=== PATIENT | female | born 1950 ===

== ENCOUNTER 2018-05-18 21:54 | Emergency (ER) | payer OTHER ==
[2018-05-18 22:05] VITALS: TEMP 98.1
[2018-05-18 22:14] VITALS: RESP 20
--- NOTE | 2018-05-18 22:15 | C.PDOC ---
History Of Present Illness Patient states she was at work eating then felt like her throat was closing and she couldn't breath. She is currently speaking in complete sentences. Denies nausea, vomiting, diarrhea, dizziness, or chest pain. Time Seen by Provider: 05/18/18 22:15 Chief Complaint (Nursing): Shortness Of Breath History Per: Patient History/Exam Limitations: no limitations Onset/Duration Of Symptoms: Hrs Current Symptoms Are (Timing): Gone Initiating Event: Other (Eating) Current Respiratory Medications: See Home Med List Severity: Moderate Pain Scale Rating Of: 4 Associated Symptoms: denies: Other (Nausea, Vomiting, Diarrhea, Dizziness, Chest pain) Recent travel outside of the [place]: No Past Medical History Reviewed: Historical Data, Nursing Documentation, Vital Signs Vital Signs: Last Vital Signs Temp 98.1 F 05/18/18 22:01 Pulse 91 H 05/18/18 22:01 Resp 20 05/18/18 22:13 BP 187/104 H 05/18/18 22:01 Pulse Ox 97 05/18/18 22:01 - Medical History PMH: HTN, Hyperlipidemia Surgical History: Appendectomy, Cholecystectomy Family History: States: No Known Family Hx - Social History Hx Alcohol Use: No Hx Substance Use: No - Immunization History Hx Tetanus Toxoid Vaccination: No Hx Influenza Vaccination: No Review Of Systems Constitutional: Negative for: Fever, Chills Cardiovascular: Negative for: Chest Pain, Palpitations Gastrointestinal: Negative for: Nausea, Vomiting, Diarrhea Neurological: Negative for: Weakness, Numbness, Dizziness Physical Exam - Physical Exam Appears: Non-toxic Skin: Warm, Dry Head: Normacephalic Eye(s): bilateral: Normal Inspection Oral Mucosa: Moist Throat: No Erythema, No Exudate, No Other (Swelling) Neck: Trachea Midline, Supple Chest: Symmetrical, No Tenderness Cardiovascular: Rhythm Regular Respiratory: No Rales, No Rhonchi, No Wheezing Gastrointestinal/Abdominal: Soft, No Tenderness Back: Normal Inspection Neurological/Psych: Oriented x3 Gait: Steady ED Course And Treatment - Laboratory Results Result Diagrams: 05/19/18 00:32 05/19/18 00:32 ECG: Interpreted By Me, Viewed By Me ECG Rhythm: Sinus Rhythm (84), Nonspecific Changes (lvh) O2 Sat by Pulse Oximetry: 97 (room air) Pulse Ox Interpretation: Normal - Radiology CXR: Interpreted by Me, Viewed By Me CXR Interpretation: No: Infiltrates, Fracture, Pnemothorax Progress Note: Blood work, CXR, and urinalysis ordered. IV fluids, pepcid, solumedrol, and insulin administered. 3:08 am pt feels much better. tolerating po. wants to go home. Lungs are CTA Reevaluation Time: 03:09 Reassessment Condition: Improved Disposition Counseled Patient/Family Regarding: Studies Performed, Diagnosis - Disposition Referrals: Non [facility] Provider, [Primary Care Provider] - Disposition: HOME/ ROUTINE Disposition Time: 22:15 Condition: FAIR Additional Instructions: Por favor regrese si los sntomas recurren. Prescriptions: Epinephrine [Epipen] 0.3 mg IJ ONCE PRN #2 auto.injct PRN Reason: Anaphylaxis Prednisone [Deltasone] 20 mg PO DAILY #5 tablet Instructions: Food Allergy Forms: [facility] (Turkmen), Work Excuse Print Language: SERBIAN - Clinical Impression Clinical Impression: Allergic reaction - Scribe Statement The provider has reviewed the documentation as recorded by the Scribericka Liang All medical record entries made by the Scribe were at my direction and personally dictated by me. I have reviewed the chart and agree that the record accurately reflects my personal performance of the history, physical exam, medical decision making, and the department course for this patient. I have also personally directed, reviewed, and agree with the discharge instructions and disposition.
[2018-05-19] MEDS ORDERED: Sodium Chloride 0.9% 1,000 ML IV SCH (00:15)
[2018-05-19] MEDS ORDERED: (Novolin R) Insulin Human Regular 100 units/ml vial IVP ONE (00:23)
[2018-05-19 00:35] LABS: BASO % 0.8 % (0.0-2.0); EOS % 0.7 % (0.0-4.0); HEMOGLOBIN 10.5 g/dL (11.0-16.0); LYMPH # 2.4 K/uL (1.0-4.3); MEAN CELL VOLUME 85.2 fL (81.0-99.0); MEAN CORPUSCULAR HEMOGLOBIN 27.5 pg (27.0-31.0); MEAN CORPUSCULAR HGB CONC 32.2 g/dL (33.0-37.0); MEAN PLATELET VOLUME 10.7 fL (7.2-11.7); MONO # 0.5 K/uL (0.0-0.8); MONO % 8.3 % (0.0-10.0); NEUT # 2.6 K/uL (1.8-7.0); NEUT % 47.2 % (50.0-75.0); RBC 3.84 Mil/uL (3.80-5.20); RED CELL DISTRIBUTION WIDTH 13.5 % (11.5-14.5); WHITE BLOOD COUNT 5.5 K/uL (4.8-10.8)
[2018-05-19] MEDS ORDERED: Sodium Chloride 0.9% 1,000 ML ONE (00:35)
[2018-05-19 00:44] LABS: INR 1.1
[2018-05-19 00:47] LABS: ALB/GLOB RATIO 1.1 (1.0-2.1); ALBUMIN 3.4 g/dL (3.5-5.0); ALT/SGPT 23 U/L (9-52); AST/SGOT 24 U/L (14-36); BLOOD UREA NITROGEN 25 mg/dL (7-17); CALCIUM 8.2 mg/dl (8.6-10.4); GFR NON-AFRICAN AMERICAN 55; LIPASE 105 U/L (23-300)
[2018-05-19 00:52] LABS: VENOUS BLOOD GAS BASE EXCESS 6.9 mmol/L (0.0-2.0); VENOUS BLOOD GAS PCO2 49 mmHg (40-60); VENOUS BLOOD GAS PO2 24 mm/Hg (30-55); VENOUS BLOOD PH 7.43 (7.32-7.43)
[2018-05-19 03:18] VITALS: BP 158/70; PULSE 81; O2SAT 98
--- NOTE | 2018-05-19 07:56 | RAD ---
Date of service: 05/19/2018 HISTORY: sob COMPARISON: No prior. TECHNIQUE: Chest PA and lateral FINDINGS: LUNGS: No infiltrate identified bilaterally. A small density seen the right costophrenic sulcus laterally, potentially reflecting nodule which follow-up chest is advised. PLEURA: No significant pleural effusion identified. No pneumothorax apparent. CARDIOVASCULAR: No aortic atherosclerotic calcification present. Borderline cardiomegaly.. No pulmonary vascular congestion. OSSEOUS STRUCTURES: No significant abnormalities. VISUALIZED UPPER ABDOMEN: Normal. OTHER FINDINGS: None. IMPRESSION: Small nodule question at right lateral base at the costophrenic sulcus. No acute infiltrate or pleural effusion bilaterally. No pulmonary vascular congestion. Consider follow-up chest CT to exclude potential nodule right base. Borderline cardiomegaly. PA review assigned.
--- NOTE | 2018-05-22 12:20 | CARD ---
APPROVED REPORT Date of service: 05/19/2018 EKG Measurement Heart [id number] <Conclusion> Normal sinus rhythm Possible Left atrial enlargement Left ventricular hypertrophy Anteroseptal infarct, age undetermined Abnormal ECG
== END 2018-05-19 03:33 | disposition home or self-care (01) ==
LOC: C.ER 21:54 → SUPCPDRO 21:54 → C.ER 05-19 03:33
DX: T78.40XA Allergy, unspecified, initial encounter (principal)
CPT/HCPCS: 71046; 80053; 82803; 83690; 84484; 85025; 85610; 85730; 93005; 96374; 96375; 99285; J2930; J7030